=== PATIENT | male | born 1960 | race Caucasian/White ===

== ENCOUNTER → 2021-03-02 10:46 | Outpatient (CLI) | payer BC, SELFPAY ==
[2021-03-02 21:02] LABS: COVID19 - ORCAS (NP or Nasal) Negative (Negative)
== END ==
PROVIDERS: Visit Provider Physician Assistant
DX: Z20.822 Contact with and (suspected) exposure to COVID-19 (principal)
CPT/HCPCS: U0003

== ENCOUNTER → 2024-05-19 14:07 | Outpatient (CLI) | payer MEDICARE, SELFPAY ==
[2024-05-19 19:41] LABS: TSH w/ Reflex to FT4 2.85 uIU/mL (0.47-4.68)
[2024-05-19 19:50] LABS: Prostate Specific Antigen < 0.064 ng/mL (0.10-4.00)
== END ==
PROVIDERS: PCP Family Medicine; Referring Provider Family Medicine; Visit Provider Family Medicine
DX: I48.91 Unspecified atrial fibrillation (principal); Z85.46 Personal history of malignant neoplasm of prostate; S73.191A Other sprain of right hip, initial encounter; E03.9 Hypothyroidism, unspecified; R06.83 Snoring
CPT/HCPCS: 84153; 84443

== ENCOUNTER → 2024-06-11 13:06 | Outpatient (CLI) | payer MEDICARE, OTHER, SELFPAY ==
[2024-06-11 20:17] LABS: Add Manual Diff / Slide Review NO; Basophils Absolute Auto 0 /uL (0-100); Basophils Percent Auto 0.6 % (0-2); Eosinophils Absolute Auto 100 /uL (0-450); Eosinophils Percent Auto 2.1 % (2-4); Hematocrit 45.4 % (41-53); Hemoglobin 15.8 g/dL (13.5-17.5); Lymphocytes Absolute Auto 1100 /uL (1100-4500); Lymphocytes Percent Auto 19.7 % (25-40); Mean Corpuscular HGB Conc 34.8 % (30-36); Mean Corpuscular Hemoglobin 31.2 PG (26-34); Mean Corpuscular Volume 89.6 fL (80-100); Monocytes Absolute Auto 500 /uL (0-900); Monocytes Percent Auto 9.8 % (3-14); Neutrophils Absolute Auto 3600 /uL (1500-7000); Neutrophils Percent Auto 67.8 % (50-75); Platelet Count 253 X10^3/uL (150-400); Red Blood Cell Count 5.07 X10^6/uL (4.5-5.9); Red Cell Distribution Width 13.7 % (11.6-14.8); White Blood Cell Count 5.3 X10^3/uL (4.5-11.0)
[2024-06-11 20:23] LABS: Alanine Aminotransferase 29 IU/L (<50); Albumin 4.1 g/dL (3.5-5.0); Albumin Globulin Ratio 1.5 (1.0-2.8); Alkaline Phosphatase 63 U/L (38-126); Aspartate Aminotransferase 32 IU/L (17-59); BUN Creatinine Ratio 23.3 (6-22); Bilirubin Total 0.9 mg/dL (0.2-1.3); Blood Urea Nitrogen 20 mg/dL (9-20); Calcium 9.6 mg/dL (8.4-10.2); Carbon Dioxide 30 mmol/L (22-32); Chloride 104 mmol/L (98-107); Cholesterol 186 mg/dL (140-199); Estimated Glomerular Filt Rate > 60 mL/min (>60); Globulin 2.7 g/dL (1.7-4.1); Glucose 91 mg/dL (80-110); HDL Cholesterol 61 mg/dL (40-60); HEMOLYSIS 31 (0-50); LDL Cholesterol Calculated 95 mg/dL (<100); Potassium 4.6 mmol/L (3.4-5.1); Sodium 137 mmol/L (137-145); Total Protein 6.8 g/dL (6.3-8.2); Triglycerides 149 mg/dL (35-150)
[2024-06-11 20:34] LABS: NT-proBNP (BNP-Adult 18+) 279 pg/mL (<125); Troponin I < 0.012 ng/mL (0.01-0.034)
== END ==
PROVIDERS: PCP Family Medicine; Visit Provider Family Medicine
DX: I48.0 Paroxysmal atrial fibrillation (principal); E03.9 Hypothyroidism, unspecified; R06.09 Other forms of dyspnea; Z13.6 Encounter for screening for cardiovascular disorders; Z13.220 Encounter for screening for lipoid disorders
CPT/HCPCS: 80053; 80061; 83880; 84484; 85025

== ENCOUNTER → 2024-07-21 11:58 | Outpatient (CLI) | payer MEDICARE, OTHER, SELFPAY ==
--- NOTE | 2024-07-21 12:00 | DI.ECHO.S_ITS ---
[facility] : : [address] : : [place] : : [id number] : : Phone: [phone] Echocardiogram Report + + :Name: NANCY PENN Study Date: 07/21/2024 Height: 71 in : :[facility] ReadingLocation: Weight: 190 lb : : Gender: Male BSA: 2.1 m2 : :: 1960 Age: 64 yrs BP: 115/78 mmHg: :Reason For Study: ATRIAL FIBRILLATION : :Ordering Physician: EDER, : :KOBE Performed By: Jessie Jimenez : :Referring: KOBE GAINES : + + Interpretation Summary 1. Normal LV contractility with EF > 55%. No WMA. No LVH. Unable to comment on diastolic function. 2. Normal RV contractility. 3. Normal chamber sizes. 4. No significant valvular abnormalities. 5. No obvious intracardiac shunts. 6. No obvious intracardiac masses/thrombi. 7. No hemodynamically significant pericardial effusion. 8. Low right sided filling pressures. Conclusion: Normal biventricular systolic function without significant valvular abnormalities. Procedure: A two-dimensional transthoracic echocardiogram with color flow and Doppler was performed. The study quality was technically adequate. There is no prior echocardiogram noted for this patient. The patient had occasional PVCs during the exam. The patient was in sinus rhythm with heart rates between 60-73 bpm during the exam. Left Ventricle: The left ventricle is normal in size and wall thickness. The ejection fraction is estimated to be 55-60%. Right Ventricle: The right ventricle is normal in size and function. Atria: The left atrial size is normal. Right atrial size is normal. There is no Doppler evidence for an interatrial shunt. Mitral Valve: The mitral valve leaflets appear to open well. There is trace mitral regurgitation. Aortic Valve: The aortic valve is trileaflet. The aortic valve opens well. There is no aortic valve stenosis. No aortic regurgitation is present. Tricuspid Valve: The tricuspid valve leaflets are thin and pliable. There is trace tricuspid regurgitation. Pulmonary artery pressures cannot be estimated because of the lack of a measurable TR jet velocity. Pulmonic Valve: The pulmonic valve is not well seen, but is grossly normal. There is trace pulmonic regurgitation. Great Vessels: The aortic root is normal size. The dimensions of the ascending aorta are normal. The IVC is of normal diameter and collapses greater than 50% with a sniff. This suggests a low right atrial pressure of 3 mm Hg. Pericardium/ Pleura There is no pericardial effusion. There is no pleural effusion. MMode/2D Measurements & Calculations LVIDd: 4.9 cm LVOT diam: 2.3 cm LVIDs: 3.2 cm Ao root diam: 3.1 cm FS: 35.8 % asc Aorta Diam: 3.3 cm IVSd: 0.70 cm Ao Arch Diam (Prox Trans): 2.9 cm LVPWd: 0.85 cm LV saeed. diameter/BSA (cm/m^2): 2.4 LV sys. diameter/BSA (cm/m^2): 1.5 LA A2 area: 17.5 cm2 RA long axis: 5.3 cm LA A4 area: 15.8 cm2 RA area: 17.3 cm2 LA length (vol): 4.7 cm RA vol: 47.8 ml LA vol: 50.4 ml RA : 23.2 ml/m2 LA vol index: 24.4 ml/m2 IVC diam: 2.0 cm RVD1 (basal): 3.9 cm RVD2 (mid): 3.3 cm TAPSE: 2.2 cm Doppler Measurements & Calculations Ao V2 max: 142.7 cm/sec LVOT Max Sawyer: 97.9 cm/sec Ao V2 mean: 103.6 cm/sec LV V1 max P.8 mmHg Ao max P.1 mmHg LV V1 VTI: 19.7 cm Ao mean P.7 mmHg SHAREE(I,D): 2.8 cm2 Ao V2 VTI: 30.0 cm SHAREE(V,D): 3.0 cm2 sev ratio: 0.66 SHAREE indexed to BSA (cm^2/m^2): 1.4 MV E max sawyer: 59.1 cm/sec PA V2 max: 90.3 cm/sec MV A max sawyer: 87.1 cm/sec PA V2 mean: 60.7 cm/sec MV E/A: 0.68 PA mean P.6 mmHg Med Peak E' Sawyer: 8.1 cm/sec PA pr(Accel): 15.6 mmHg E/E' med: 7.3 Lat Peak E' Sawyer: 8.0 cm/sec E/E' lat: 7.4 E/e' average: 7.3 MV dec time: 0.19 sec SV(LVOT): 84.9 ml Reading Physician:
== END ==
LOC: ECHO 11:59
PROVIDERS: PCP Family Medicine; Referring Provider Family Medicine; Visit Provider Family Medicine
DX: I48.0 Paroxysmal atrial fibrillation (principal)
CPT/HCPCS: 93306

== ENCOUNTER → 2024-09-29 14:53 | Outpatient (CLI) | payer MEDICARE, OTHER, SELFPAY ==
--- NOTE | 2024-09-29 14:56 | DI.NM.S_ITS ---
PROCEDURE: NM EXERCISE TREADMILL NON NUC COMPARISON: None. INDICATIONS: PAROX AFIB FINDINGS: Rest ECG sinus rhythm 69 bpm. Petr protocol 8:40, maximum heart rate 213 bpm (137% peak predicted, see below regarding A-fib), peak blood pressure 152/90, 9.4 METS, FRANCES -10%. Exercise ECG sinus tachycardia up to 117 bpm with no associated ST segment changes. At the beginning of stage III, rhythm changed to atrial fibrillation with RVR up to 213 bpm that was associated with 1 to [address] segment depressions leads II, V4-V6. 13-1/2 minutes into recovery, the patient spontaneously converted to sinus rhythm. The patient did not report exercise-induced chest discomfort. IMPRESSION: Abnormal study. No ST segment changes noted with sinus tachycardia up to 75% peak predicted heart rate. Sinus tachycardia changed to atrial fibrillation with RVR at [address]-T segment changes. Spontaneous conversion to sinus rhythm in recovery. Normal blood pressure response. Good exercise capacity. Dictated by: Helena Jackson D.O. on 09/29/2024 at 17:15 Approved by: Helena Jackson D.O. on 09/29/2024 at 17:27
== END ==
PROVIDERS: PCP Family Medicine; Referring Provider Internal Medicine Cardiovascular Disease; Visit Provider Internal Medicine Cardiovascular Disease
DX: I48.0 Paroxysmal atrial fibrillation (principal); R00.0 Tachycardia, unspecified
CPT/HCPCS: 93017

== ENCOUNTER → 2025-05-20 13:34 | Outpatient (CLI) | payer MEDICARE, OTHER, SELFPAY ==
[2025-05-20 19:18] LABS: Add Manual Diff / Slide Review NO; Hematocrit 43.0 % (41-53); Hemoglobin 15.1 g/dL (13.5-17.5); Lymphocytes Absolute Auto 1000 /uL (1100-4500); Mean Corpuscular HGB Conc 35.1 % (30-36); Mean Corpuscular Hemoglobin 30.9 PG (26-34); Mean Corpuscular Volume 88.0 fL (80-100); Platelet Count 240 X10^3/uL (150-400)
[2025-05-20 19:36] LABS: Blood Urea Nitrogen 16 mg/dL (9-20); Calcium 9.3 mg/dL (8.4-10.2); Carbon Dioxide 28 mmol/L (22-32); Chloride 103 mmol/L (98-107); Estimated Glomerular Filt Rate > 60 mL/min (>60); Glucose 87 mg/dL (70-99); HEMOLYSIS < 15 (0-50); Potassium 4.3 mmol/L (3.4-5.1); Sodium 138 mmol/L (137-145)
[2025-05-20 20:09] LABS: TSH w/ Reflex to FT4 2.38 uIU/mL (0.47-4.68)
[2025-05-20 20:11] LABS: Prostate Specific Antigen < 0.064 ng/mL (0.10-4.00)
== END ==
PROVIDERS: PCP Family Medicine; Visit Provider Family Medicine
DX: R06.09 Other forms of dyspnea (principal); C61 Malignant neoplasm of prostate; Z87.448 Personal history of other diseases of urinary system; I48.0 Paroxysmal atrial fibrillation; E03.9 Hypothyroidism, unspecified
CPT/HCPCS: 80048; 84153; 84443; 85025